=== PATIENT | female | born 1955 | race Caucasian/White ===

== ENCOUNTER 2017-02-13 09:40 | Inpatient (IN) ==
--- NOTE | 2017-02-01 11:46 | EKG Report ---
Stationary ECG Study [facility] Test Date: 02/01/2017 11:46:30 AM Pat Name: FERMÍN SEALS Department: Room: Gender: F [employer] Consultant: TAHIR STEVE [birth year] : 1955 Requested by: Connor Steve Order Number: [id number] Reading MD: ANGELITA CUADRA Intervals [place] Rate: 94 P: 65 IA: 132 QRS: 23 QRSD: 87 T: 24 QT: 352 QTc: 404 Interpretive Statements SINUS RHYTHM POSSIBLE RIGHT VENTRICULAR CONDUCTION DELAY Electronically Signed On 02-04-17 18:23:36 CDT by ANGELITA CUADRA [email or web address]
[2017-02-01 12:17] LABS: Basophils # 0.1 10*3/uL (0.0-0.2); Basophils % 0.8 % (0.0-0.8); Eosinophils % 0.6 % (0.00-10.9); Hematocrit 41.1 VOL% (35.7-47.0); Hemoglobin 13.9 GM/DL (12.0-16.0); Immature Granulocytes % 0.8 %; Immature Granulocytes Absolute 0.05 #; Lymphocytes # 1.7 10*3/uL (1.4-4.0); Mean Corpuscular HGB Conc 33.8 GM/DL (32-36); Mean Corpuscular Hemoglobin 29 PG (27-34); Mean Corpuscular Volume 85.6 FL (87-102); Mean Platelet Volume 8.9 FL (9.6-12.0); Monocytes # 0.5 10*3/uL (0.11-0.8); Monocytes % 7.5 % (1.7-12.7); Neutrophils # 4.2 10*3/uL (1.4-7.4); Neutrophils % 64.3 % (38.7-73.9); Platelet Count 286 T/CUMM (130-400); Red Cell Distribution Width 13.1 % (9.3-17.3); White Blood Count 6.5 T/CUMM (4-12)
--- NOTE | 2017-02-01 12:45 | Urology History & Physical ---
- Constitutional Constitutional: Absent: fatigue, increased appetite, night sweats, weakness - Cardiovascular Cardiovascular: Absent: chest pain at rest, chest pain with activity, dyspnea on exertion, radiating jaw, neck or arm pain, palpitations - Respiratory Respiratory: Absent: cough, hemoptysis, wheezing - Gastrointestinal Gastrointestinal: Absent: abdominal pain, hematemesis, melena, vomiting, jaundice - Genitourinary Genitourinary: Present: as per HPI, hematuria - Neurological Neurological: Absent: abnormal gait, abnormal speech - Psychiatric Psychiatric: Absent: anxiety, depression History of Present Illness Chief complaint: Bladder tumor History of present illness: Ms. Hidalgo is a 61 year old female This 61-year-old white female was referred by Dr. Ramos Winkler with gross hematuria and she has normal upper tracts on CT with a filling defect it was confirmed to be a bladder tumor. She is brought in at this time for TUR of the bladder and we discussed the possible complications of perforation the bladder and bleeding. Home Medications Medication Instructions Recorded Confirmed Type Aspirin [Ecotrin] 81 mg PO DAILY 01/19/17 02/01/17 History Loratadine [Claritin] 10 mg PO BEDTIME 01/19/17 02/01/17 History Omeprazole 20 mg PO DAILY 01/19/17 02/01/17 History Pravastatin [Pravachol] 20 mg PO BEDTIME 01/19/17 02/01/17 History Amlodipine Besylate 5 mg PO BEDTIME 02/01/17 02/01/17 History Allergies Allergy/AdvReac Type Severity Reaction Status Date / Time hydrochlorothiazide Allergy Severe HIVES Verified 01/25/17 11:13 latex Allergy Intermediate RASH/REDNES Verified 02/01/17 11:41 S Medical,Surgical,& Family Hx - Medical History Cardio: History of: Hypertension (medication) No history of: CHF, Pacemaker, PVD, Valvular Heart Disease Psychological: No history of: Psychiatric Problems Neurology: History of: Cerebrovascular Accident (mild stroke at age 34 yrs old) No history of: Seizures, TIA HEENT: History of: Eye Problem (glasses), Dental Problems (upper and parital) Endocrine: History of: Diabetes Mellitus (NIDDM) Respiratory: No history of: Respiratory Problems (No Flu Vac 2016/2016 Season) Renal: History of: Renal Problems (blood in urine) Genitourinary: History of: Bladder Problem (Bladder Tumor), Recurring Urinary Tract Infections Gastrointestinal: History of: GERD, GI Problems (does have a hernia) Musculoskeletal: No history of: Amputation Hematology: No history of: Blood Transfusion Reaction Reproductive: No history of: Reproductive Problems Other: No history of: Anesthesia Reactions - Surgical History Surgical History: noncontributory Cardiac Surgeries: Patient Denies: Cardiac Catheterization, Cardiac Surgery Thoracic Surgeries: Patient denies;: Organ Transplant HEENT Surgeries: Surgical HX of: Tonsilectomy & Adenoidectomy Abdominal Surgeries: Surgical HX of: Colonoscopy Patient denies: Splenectomy Reproductive Surgeries: Surgical HX of;: Cystoscopy, Genitourinary Surgery (02/13 Sched for TURB) - Family History Family History: noncontributory Family History: Reports;: Family Cancer (sister brother), Family Heart Disease ( brother father) - Social History Smoking Status: Former smoker Frequency of Alcohol Use: None Type of Drug Use: None Exam - Constitutional General appearance: no acute distress, over weight - Head Head exam: Present: normocephalic - Neck Neck exam: Present: normal inspection - Respiratory Respiratory exam: Present: clear to auscultation bilaterally - Cardiovascular Cardiovascular exam: Present: regular rate and rhythm - GI/Abdominal GI/Abdominal exam: Absent: distended, mass, tenderness - Back Exam Back exam: Present: normal inspection - Neurological Exam Neurological exam: Present: alert, oriented X3 - Psychiatric Psychiatric exam: Present: normal affect, normal mood - Skin Skin exam: Present: warm, dry Results - Labs CBC & BMP: 02/01/17 12:10
[2017-02-01 12:54] LABS: Calcium 9.6 MG/DL (8.5-10.1); Osmolality,Calculated 282.1 MOS/KG (273-304)
--- NOTE | 2017-02-13 07:53 | History and Physical Update ---
History and Physical Update - History and Physical H&P was reviewed, the patient examined and there: are no changes in the patients condition since last H&P was completed.
[~2017-02-13 09:40] MED LIST: LEVOFLOXACIN INJ 500 MG in PREMIX 1 EACH IV ONE; OXYBUTYNIN XL 15 MG TABLET PO ONE
[2017-02-13] MEDS ORDERED: LEVOFLOXACIN INJ 100 ML IV ONE (10:32)
[2017-02-13] MEDS ORDERED: OXYBUTYNIN XL 15 MG TABLET PO ONE (11:00)
[2017-02-13] MEDS ORDERED: DIAZEPAM 5 MG TABLET PO ONE (11:10)
[2017-02-13] MEDS ORDERED: FAMOTIDINE 20 MG TABLET PO ONE (11:11)
[2017-02-13] MEDS ORDERED: DIAZEPAM 5 MG TABLET ONE (11:28)
[2017-02-13] MEDS ORDERED: FAMOTIDINE 20 MG TABLET ONE (11:28)
[2017-02-13] MEDS ORDERED: LACTATED RINGERS 1,000 ML IV SCH (11:30)
[2017-02-13] MEDS ORDERED: MITOMYCIN INTRAVESIC STA (16:40)
[2017-02-13] MEDS ORDERED: SODIUM CHLORIDE 0.9% INTRAVESIC STA (16:40)
--- NOTE | 2017-02-13 16:51 | Operative Note ---
Date of procedure: 02/13/17 Pre-op diagnosis: cancer of the bladder Post-op diagnosis: same Procedure: Under an adequate preop medication including antibiotics the patient was taken to the cystoscopy room placed on the table in the supine position. General anesthesia was administered by anesthesia and the patient was turned into the lithotomy position prepped and draped in the usual manner. A timeout procedure was done. The 26 Armenian resectoscope sheath was introduced in the bladder and the bladder was again inspected. There was moderately large papillary tumor just to the lateral aspect of the left orifice and the left orifice was identified. The tumor was then resected down to the base and this portion of the tumor was removed and submitted as specimen #1 labeled bladder tumor. Deep biopsy was then taken off of the bladder base and this was submitted as specimen #2 labeled deep biopsy. The resected site was then thoroughly fulgurated. At the end of the procedure there was no bleeding and all the resected tissue been removed. A 22 silicone catheter was introduced in the bladder irrigated clear left on gravity drainage. Estimated blood loss was minimal. The patient tolerated procedure well and returned to the recovery room in good condition. Anesthesia: MAC Surgeon / Physician: Connor Steve Estimated blood loss: minimal Specimens: other (1. Bladder tumor #2 deep biopsy) Condition: stable Disposition: floor Results - Labs CBC & BMP: 02/01/17 12:10 02/01/17 12:10 Discharge Plan - Discharge Medications No Action Pravastatin [Pravachol] 20 mg PO BEDTIME Loratadine [Claritin] 10 mg PO BEDTIME Omeprazole 20 mg PO DAILY Amlodipine Besylate 5 mg PO BEDTIME Aspirin [Ecotrin] 81 mg PO DAILY - Follow Up or Referral - Forms/Instructions
[2017-02-13] MEDS ORDERED: MORPHINE 10 MG/1 ML VIAL IV PRN (16:54)
[2017-02-13] MEDS ORDERED: PROMETHAZINE 25 MG/1 ML VIAL IM PRN (16:54)
[2017-02-13] MEDS ORDERED: MITOMYCIN INTRAVESIC ONE ×2 (16:55→17:00)
[2017-02-13] MEDS ORDERED: SODIUM CHLORIDE 0.9% INTRAVESIC ONE (17:00)
--- NOTE | 2017-02-13 17:02 | Anesthesia Post-Op ---
Anesthesia Post OP - Post Ansesthetic Evaluation Patient seen in post op: Yes Resp: within normal limits CV: within normal limits Mental: within normal limits Temp: within normal limits [id number]-[id number]: within normal limits Nausea and Vomiting: within normal limits Pain: within normal limits
[2017-02-13] MEDS ORDERED: ONDANSETRON 4 MG/2 ML VIAL ONE (17:04)
[2017-02-13] MEDS ORDERED: SEVOFLURANE 1 UNIT/15 MINUTE INH ONE (17:04)
[2017-02-13] MEDS ORDERED: PROPOFOL 200 MG/20 ML VIAL IV ONE (17:04)
[2017-02-13] MEDS ORDERED: MIDAZOLAM 2 MG/2 ML VIAL ONE (17:04)
[2017-02-13] MEDS ORDERED: fentaNYL 100 MCG/2 ML VIAL ONE (17:04)
[2017-02-13] MEDS: SODIUM CHLORIDE 0.45% 1,000 ML IV SCH (18:45)
[2017-02-14] MEDS: SODIUM CHLORIDE 0.45% 1,000 ML IV SCH (02:31)
--- NOTE | 2017-02-14 07:41 | Urology Progress Note ---
Urology - PN: Subj Interval history: The patient did well last night and her urine is clear this morning. I will take out her IV and Gilmore and if she is doing well later today discharge her after lunch Exam - Constitutional Vitals: Period Temp Pulse Resp BP Sys/Morales Pulse Ox Last 24 Hr 97.0 F-98.4 F 67-93 14-20 82-150/51-88 94-100 Results - Labs CBC & BMP: 02/01/17 12:10 02/01/17 12:10
--- NOTE | 2017-02-14 07:44 | Discharge Summary ---
Hospital Course - Hospital Course Hospital Course: This 61-year-old white female was evaluated as an outpatient for intermittent gross hematuria and was found to have a papillary bladder tumor with normal upper tracts. She is brought in at this time for TUR of the bladder which was done under general anesthesia the day of admission. Her postoperative course was uneventful. She will be discharged on all of her home medication and follow the office in 2 weeks Discharge Plan - Discharge Data Disposition: Disch To Home/Self Care Condition at Discharge: Stable Discharge Diet: advance to your usual diet Activity: resume usual activities as tolerated Hygiene: no restrictions Weight Bearing at Discharge: full weight bearing Driving: no restrictions Contact your physician if you experience:: Bleeding - Discharge Medications No Action Pravastatin [Pravachol] 20 mg PO BEDTIME Loratadine [Claritin] 10 mg PO BEDTIME Omeprazole 20 mg PO DAILY Amlodipine Besylate 5 mg PO BEDTIME Aspirin [Ecotrin] 81 mg PO DAILY - Follow Up or Referral Follow Up: Connor Steve MD [Physician] - 2 Weeks - Forms/Instructions Exam - Constitutional Vitals: Period Temp Pulse Resp BP Sys/Morales Pulse Ox Last 24 Hr 97.0 F-98.4 F 67-93 14-20 82-150/51-88 94-100 DS: Provider Primary care physician: Ramos Gay MD Discharging clinician: Connor Steve MD
[2017-02-14 10:13] LABS: Amorphous Crystals,Urine Occasional /HPF (Few); Apearance,Urine CLOUDY (Clear); Bilirubin,Urine Negative (Negative); Blood, Urine Large mg/dL (Negative); Glucose,Urine (UA) Negative (Negative); Ketones,Urine Negative (Negative); Mucus,Urine Occasional /LPF (Occasional); Nitrite,Urine Negative (Negative); Protein,Urine 30 MG/DL; RBC,Urine 15 /HPF (0-4); Squamous Epithelial Cell,Urine Occasional /HPF (0-10); Urine Color Yellow (Yellow); Urine Specific Gravity 1.003 (1.001-1.035); Urine Urobilinogen < 2.0 EU/DL (0.2-1.0); WBC,Urine 9 /HPF (0-6)
[2017-02-14 11:03] VITALS: BP 111/63
--- NOTE | 2017-02-16 13:56 | Pathology Report from [facility] ---
[facility] ACCESSION # : [id number] PATIENT NAME : Fermín Hidalgo ORDERING DR : AELX MILLAN MD CLINICAL HX: Bladder tumor POST-OP DX: Same SPECIMEN INFO: #1 Bladder tumor #2 deep biopsy GROSS DESCRIPTION: The specimen is received in formalin in two parts labeled FERMÍN HIDALGO. #1 BLADDER is multiple friable fragments of andrade-vasquez soft tissue , collectively measuring 6.5 x 5.0 cm, submitted in entirely in 1A-1E.#2 DEEP BX consists of three white-vasquez soft tissue fragments, collectively measuring 1.5 up to 0.5 cm, submitted in #2. DIAGNOSIS FOR FERMÍN HIDALGO: #1 & #2 URINARY BLADDER, TURB: HISTOLOGIC TYPE: Papillary urothelial carcinoma, invasive. TUMOR SITE: Not specified. HISTOLOGIC GRADE: Low grade. MUSCULARIS PROPRIA PRESENCE: No muscularis propria present in specimens #1 or #2. MICROSCOPIC TUMOR EXTENSION: Tumor invades subepithelial connective tissue (lamina propria). LYMPHOVASCULAR INVASION: Not identified. ASSOCIATED EPITHELIAL LESIONS: None. ADDITIONAL FINDINGS: Moderate to marked thermal artifact. AJCC PATHOLOGIC STAGE I ([id number]). COLLECTED DATE: 02/14/2017 [facility] REPORT DATE: 02/15/2017 ELECTRONICALLY SIGNED BY: Fernando Humphrey M.D. 02/15/2017 - 10:22:29 ARMANDO
== END 2017-02-14 12:50 | disposition home or self-care (01) | DRG 670 ==
LOC: N.SDSINP 09:40 → N.OR 09:40 → N.SDSINP 09:43 → EDSTATUS 12:00 → N.3E 16:51 → EDSDCBED 17:58 → N.OR 02-14 12:50 → N.3E 02-19 15:16 → N.3W 02-19 15:20 → N.SDSINP 02-19 15:20
PROVIDERS: ADMIT Urology; ATTEND Urology

== ENCOUNTER 2019-01-04 18:44 | Inpatient (IN) ==
[2019-01-04] MEDS ORDERED: ONDANSETRON 4 MG/2 ML VIAL IV STA (19:30)
[2019-01-04] MEDS ORDERED: SODIUM CHLORIDE 0.9% 1,000 ML IV STA (19:30)
[2019-01-04 20:38] LABS: Basophils % 0.1 % (0.0-0.8); Eosinophils # 0.1 10*3/uL (0.0-0.87); Eosinophils % 0.7 % (0.00-10.9); Hemoglobin 10.1 GM/DL (12.0-16.0); Immature Granulocytes % 0.4 %; Immature Granulocytes Absolute 0.03 #; Lymphocytes # 0.9 10*3/uL (1.4-4.0); Lymphocytes % 12.3 % (21.3-54.2); Mean Corpuscular HGB Conc 31.6 GM/DL (32-36); Mean Corpuscular Volume 90.7 FL (87-102); Mean Platelet Volume 8.7 FL (9.6-12.0); Monocytes % 12.9 % (1.7-12.7); Neutrophils % 73.6 % (38.7-73.9); Platelet Count 353 T/CUMM (130-400); Red Blood Count 3.53 MC/CUMM (3.8-5.5); Red Cell Distribution Width 18.2 % (9.3-17.3); White Blood Count 7.5 T/CUMM (4-12)
[2019-01-04 21:07] LABS: Albumin 3.4 G/DL (3.4-5.0); Bilirubin,Total 0.6 MG/DL (0.2-1.0); Calcium 8.7 MG/DL (8.5-10.1); Osmolality,Calculated 275.7 MOS/KG (273-304); Total Protein 7.1 G/DL (6.4-8.3)
[2019-01-04] MEDS ORDERED: DEXTROSE 50% 25 GM/50 ML VIAL IV PRN (21:52)
[2019-01-04] MEDS ORDERED: GLUCAGON 1 MG VIAL IM PRN (21:52)
[2019-01-04] MEDS: ENOXAPARIN 40 MG/0.4 ML SYRINGE SUBCUT SCH (22:50)
[2019-01-04] MEDS: SODIUM CHLORIDE 0.9% 1,000 ML IV SCH (22:51)
[2019-01-04] MEDS: PIPERACILLIN/TAZOBACTAM 3,375 MG in SODIUM CHLORIDE 0.9% 100 ML IV SCH (23:10)
[2019-01-05] MEDS: HYDROmorphone 2 MG/1 ML VIAL IV PRN ×4 (01:30→21:05)
[2019-01-05] MEDS: INSULIN LISPRO 100 UNIT/ML SUBCUT SCH ×4 (01:44→18:12)
[2019-01-05 05:01] LABS: Basophils % 0.2 % (0.0-0.8); Eosinophils % 0.7 % (0.00-10.9); Hematocrit 26.2 VOL% (35.7-47.0); Hemoglobin 8.1 GM/DL (12.0-16.0); Immature Granulocytes % 0.5 %; Immature Granulocytes Absolute 0.03 #; Lymphocytes # 1.1 10*3/uL (1.4-4.0); Lymphocytes % 17.9 % (21.3-54.2); Mean Corpuscular HGB Conc 30.9 GM/DL (32-36); Mean Corpuscular Volume 92.3 FL (87-102); Mean Platelet Volume 8.9 FL (9.6-12.0); Monocytes % 15.4 % (1.7-12.7); Neutrophils % 65.3 % (38.7-73.9); Platelet Count 301 T/CUMM (130-400); Red Blood Count 2.84 MC/CUMM (3.8-5.5); Red Cell Distribution Width 18.1 % (9.3-17.3)
[2019-01-05] MEDS: PIPERACILLIN/TAZOBACTAM 3,375 MG in SODIUM CHLORIDE 0.9% 100 ML IV SCH ×3 (05:25→21:53)
[2019-01-05] MEDS ORDERED: POTASSIUM CHLORIDE 20 MEQ TABLET PO ONE (07:49)
[2019-01-05] MEDS: FAMOTIDINE 20 MG/2 ML VIAL IV SCH ×2 (08:34→20:59)
[2019-01-05] MEDS: SODIUM CHLORIDE 0.9% 1,000 ML IV SCH (09:38)
[2019-01-05] MEDS: DEXT 5% LACT RING KCL 20 MEQ 20 MEQ/1,000 ML BAG IV SCH ×2 (12:18→22:12)
[2019-01-05] MEDS: ONDANSETRON 4 MG/2 ML VIAL IV PRN (13:02)
[2019-01-05] MEDS ORDERED: SODIUM CHLORIDE 0.9% 100 ML IV ONE (20:38)
[2019-01-05] MEDS: ENOXAPARIN 40 MG/0.4 ML SYRINGE SUBCUT SCH (20:58)
[2019-01-06] MEDS: INSULIN LISPRO 100 UNIT/ML SUBCUT SCH ×4 (00:11→18:15)
[2019-01-06] MEDS: DEXT 5% LACT RING KCL 20 MEQ 20 MEQ/1,000 ML BAG IV SCH ×3 (03:45→20:34)
[2019-01-06 05:06] LABS: Basophils % 0.4 % (0.0-0.8); Eosinophils # 0.2 10*3/uL (0.0-0.87); Hematocrit 28.5 VOL% (35.7-47.0); Hemoglobin 8.7 GM/DL (12.0-16.0); Immature Granulocytes % 0.7 %; Immature Granulocytes Absolute 0.05 #; Lymphocytes # 1.2 10*3/uL (1.4-4.0); Lymphocytes % 15.6 % (21.3-54.2); Mean Corpuscular HGB Conc 30.5 GM/DL (32-36); Mean Corpuscular Volume 91.9 FL (87-102); Mean Platelet Volume 8.8 FL (9.6-12.0); Monocytes % 17.7 % (1.7-12.7); Neutrophils % 63.6 % (38.7-73.9); Platelet Count 369 T/CUMM (130-400); Red Cell Distribution Width 18.3 % (9.3-17.3); White Blood Count 7.7 T/CUMM (4-12)
[2019-01-06 05:34] LABS: Calcium 8.4 MG/DL (8.5-10.1); Osmolality,Calculated 282.1 MOS/KG (273-304); Risk Ratio 4.46; Thyroid Stimulating Hormone 1.15 uIU/ml (0.358-3.74); VLDL CHOLESTEROL 25.6 MG/DL
[2019-01-06 05:36] LABS: Eosinophils 2 % (0-10); Hypochromasia 1+; Lymphocytes 14 % (20-55); Ovalocytes Slight; Platelet Estimate Adequate; Segmented Neutrophils 71 % (50-85); Total Cells Counted 100
[2019-01-06] MEDS: PIPERACILLIN/TAZOBACTAM 3,375 MG in SODIUM CHLORIDE 0.9% 100 ML IV SCH ×3 (05:41→22:53)
[2019-01-06] MEDS: FAMOTIDINE 20 MG/2 ML VIAL IV SCH ×2 (09:58→20:29)
[2019-01-06] MEDS ORDERED: BENZOCAINE/MENTHOL LOZENGE 18/BOX PO PRN (11:07)
[2019-01-06] MEDS ORDERED: PHENOL 1.4% THROAT SPRAY 177 ML BOTTLE PO PRN (11:07)
[2019-01-06] MEDS: ONDANSETRON 4 MG/2 ML VIAL IV PRN (11:59)
[2019-01-06] MEDS: KETOROLAC 15 MG/1 ML VIAL IM PRN (12:21)
[2019-01-06] MEDS: HYDROmorphone 2 MG/1 ML VIAL IV PRN (20:26)
[2019-01-06] MEDS: ENOXAPARIN 40 MG/0.4 ML SYRINGE SUBCUT SCH ×2 (20:34→22:31)
[2019-01-07] MEDS: INSULIN LISPRO 100 UNIT/ML SUBCUT SCH ×4 (00:19→18:11)
[2019-01-07] MEDS: HYDROmorphone 2 MG/1 ML VIAL IV PRN ×3 (01:39→23:38)
[2019-01-07] MEDS: DEXT 5% LACT RING KCL 20 MEQ 20 MEQ/1,000 ML BAG IV SCH ×3 (05:18→20:36)
[2019-01-07] MEDS: PIPERACILLIN/TAZOBACTAM 3,375 MG in SODIUM CHLORIDE 0.9% 100 ML IV SCH ×3 (05:19→22:04)
[2019-01-07 05:28] LABS: Calcium 8.2 MG/DL (8.5-10.1); Osmolality,Calculated 285.8 MOS/KG (273-304)
[2019-01-07 05:31] LABS: Basophils % 0.4 % (0.0-0.8); Eosinophils # 0.1 10*3/uL (0.0-0.87); Eosinophils % 1.5 % (0.00-10.9); Hematocrit 27.1 VOL% (35.7-47.0); Hemoglobin 8.2 GM/DL (12.0-16.0); Immature Granulocytes % 0.6 %; Immature Granulocytes Absolute 0.05 #; Lymphocytes # 1.1 10*3/uL (1.4-4.0); Mean Corpuscular HGB Conc 30.3 GM/DL (32-36); Mean Corpuscular Volume 91.6 FL (87-102); Monocytes % 14.7 % (1.7-12.7); Neutrophils % 68.8 % (38.7-73.9); Platelet Count 485 T/CUMM (130-400); Red Blood Count 2.96 MC/CUMM (3.8-5.5); Red Cell Distribution Width 18.2 % (9.3-17.3)
[2019-01-07] MEDS: FAMOTIDINE 20 MG/2 ML VIAL IV SCH ×2 (08:40→20:41)
[2019-01-07] MEDS: KETOROLAC 15 MG/1 ML VIAL IM PRN ×2 (08:46→15:26)
[2019-01-07] MEDS: ENOXAPARIN 40 MG/0.4 ML SYRINGE SUBCUT SCH (20:41)
[2019-01-08] MEDS: INSULIN LISPRO 100 UNIT/ML SUBCUT SCH ×4 (01:03→18:37)
[2019-01-08] MEDS: HYDROmorphone 2 MG/1 ML VIAL IV PRN ×2 (05:08→18:37)
[2019-01-08] MEDS: PIPERACILLIN/TAZOBACTAM 3,375 MG in SODIUM CHLORIDE 0.9% 100 ML IV SCH (05:12)
[2019-01-08 05:59] LABS: Basophils % 0.5 % (0.0-0.8); Eosinophils # 0.2 10*3/uL (0.0-0.87); Eosinophils % 2.9 % (0.00-10.9); Hematocrit 28.8 VOL% (35.7-47.0); Hemoglobin 8.7 GM/DL (12.0-16.0); Immature Granulocytes % 0.5 %; Immature Granulocytes Absolute 0.04 #; Lymphocytes # 0.9 10*3/uL (1.4-4.0); Lymphocytes % 11.9 % (21.3-54.2); Mean Corpuscular HGB Conc 30.2 GM/DL (32-36); Mean Corpuscular Volume 92.3 FL (87-102); Mean Platelet Volume 8.9 FL (9.6-12.0); Monocytes % 12.7 % (1.7-12.7); Neutrophils % 71.5 % (38.7-73.9); Platelet Count 637 T/CUMM (130-400); Red Blood Count 3.12 MC/CUMM (3.8-5.5); White Blood Count 7.7 T/CUMM (4-12)
[2019-01-08 06:14] LABS: Osmolality,Calculated 282.1 MOS/KG (273-304)
[2019-01-08] MEDS: DEXT 5% LACT RING KCL 20 MEQ 20 MEQ/1,000 ML BAG IV SCH ×2 (06:18→15:53)
[2019-01-08] MEDS ORDERED: POTASSIUM CHLORIDE 20 MEQ TABLET PO PRN (07:22)
[2019-01-08] MEDS: FAMOTIDINE 20 MG/2 ML VIAL IV SCH ×2 (08:33→20:44)
[2019-01-08] MEDS: POTASSIUM CHLORIDE RIDER 10 MEQ in PREMIX 1 EACH IV PRN ×2 (08:33→15:54)
[2019-01-08] MEDS ORDERED: PROPOFOL 200 MG/20 ML VIAL IV ONE (10:00)
[2019-01-08] MEDS ORDERED: LIDOCAINE 2% 5 ML VIAL ONE (10:00)
[2019-01-08] MEDS: LACTATED RINGERS 1,000 ML IV SCH (10:17)
[2019-01-08] MEDS: ONDANSETRON 4 MG/2 ML VIAL IV PRN (13:40)
[2019-01-08] MEDS ORDERED: PROMETHAZINE INJ 25 MG in SODIUM CHLORIDE 0.9% 50 ML IV PRN (16:06)
[2019-01-08] MEDS: ENOXAPARIN 40 MG/0.4 ML SYRINGE SUBCUT SCH (20:44)
[2019-01-09] MEDS: INSULIN LISPRO 100 UNIT/ML SUBCUT SCH ×4 (01:36→17:22)
[2019-01-09] MEDS: DEXT 5% LACT RING KCL 20 MEQ 20 MEQ/1,000 ML BAG IV SCH ×2 (01:37→08:52)
[2019-01-09] MEDS: HYDROmorphone 2 MG/1 ML VIAL IV PRN ×4 (01:38→21:28)
[2019-01-09 04:50] LABS: Basophils % 0.2 % (0.0-0.8); Eosinophils # 0.1 10*3/uL (0.0-0.87); Eosinophils % 1.2 % (0.00-10.9); Hematocrit 30.8 VOL% (35.7-47.0); Hemoglobin 9.1 GM/DL (12.0-16.0); Immature Granulocytes % 0.6 %; Immature Granulocytes Absolute 0.05 #; Lymphocytes # 1.2 10*3/uL (1.4-4.0); Lymphocytes % 14.5 % (21.3-54.2); Mean Corpuscular HGB Conc 29.5 GM/DL (32-36); Mean Corpuscular Volume 92.5 FL (87-102); Mean Platelet Volume 8.6 FL (9.6-12.0); Monocytes % 13.1 % (1.7-12.7); Neutrophils % 70.4 % (38.7-73.9); Platelet Count 743 T/CUMM (130-400); Red Blood Count 3.33 MC/CUMM (3.8-5.5); Red Cell Distribution Width 18.1 % (9.3-17.3); White Blood Count 8.3 T/CUMM (4-12)
[2019-01-09 05:18] LABS: Calcium 8.4 MG/DL (8.5-10.1)
[2019-01-09] MEDS: FAMOTIDINE 20 MG/2 ML VIAL IV SCH ×2 (08:52→21:24)
[2019-01-09] MEDS: FAT EMULSION 20% 250 ML IV SCH (14:52)
[2019-01-09] MEDS ORDERED: TRACE ELEMENTS (5) 1 ML, MULTIVITAMIN INJ 10 ML in AMINO ACIDS/DEXT/LYTES 5-15% 2,000 ML IV SCH (17:00)
[2019-01-09] MEDS ORDERED: DEXTROSE 10% 1,000 ML IV PRN (17:00)
[2019-01-09] MEDS: DEXTROSE 5% NACL 0.45% 1,000 ML IV SCH (20:40)
[2019-01-09] MEDS: ENOXAPARIN 40 MG/0.4 ML SYRINGE SUBCUT SCH (21:21)
[2019-01-09] MEDS: LACTATED RINGERS 1,000 ML IV SCH (21:29)
[2019-01-10] MEDS: INSULIN LISPRO 100 UNIT/ML SUBCUT SCH ×5 (03:00→23:47)
[2019-01-10] MEDS: HYDROmorphone 2 MG/1 ML VIAL IV PRN ×4 (03:52→23:55)
[2019-01-10 04:41] LABS: Basophils % 0.4 % (0.0-0.8); Eosinophils # 0.3 10*3/uL (0.0-0.87); Eosinophils % 3.3 % (0.00-10.9); Hematocrit 29.1 VOL% (35.7-47.0); Hemoglobin 8.7 GM/DL (12.0-16.0); Immature Granulocytes % 0.5 %; Immature Granulocytes Absolute 0.04 #; Lymphocytes % 12.5 % (21.3-54.2); Mean Corpuscular HGB Conc 29.9 GM/DL (32-36); Mean Corpuscular Volume 90.7 FL (87-102); Neutrophils % 70.3 % (38.7-73.9); Platelet Count 807 T/CUMM (130-400); Red Blood Count 3.21 MC/CUMM (3.8-5.5); Red Cell Distribution Width 18.1 % (9.3-17.3); White Blood Count 8.1 T/CUMM (4-12)
[2019-01-10 04:47] LABS: Calcium 8.4 MG/DL (8.5-10.1); Osmolality,Calculated 283.1 MOS/KG (273-304)
[2019-01-10 04:53] LABS: Prealbumin 9.6 MG/DL (20-40)
[2019-01-10] MEDS: DEXTROSE 5% NACL 0.45% 1,000 ML IV SCH (05:15)
[2019-01-10] MEDS: FAMOTIDINE 20 MG/2 ML VIAL IV SCH ×2 (08:39→20:42)
[2019-01-10] MEDS ORDERED: cefOXitin 2,000 MG in SYRINGE 1 EACH IV ONE (09:54)
[2019-01-10 14:23] LABS: Apearance,Urine CLEAR (Clear); Bilirubin,Urine Negative (Negative); Blood, Urine Negative (Negative); Glucose,Urine (UA) Negative (Negative); Ketones,Urine 5 mg/dL (Negative); Mucus,Urine Few /LPF (Occasional); Nitrite,Urine Negative (Negative); Protein,Urine Negative; RBC,Urine 4 /HPF (0-4); Squamous Epithelial Cell,Urine Occasional /HPF (0-10); Urine Color Yellow (Yellow); Urine Specific Gravity 1.011 (1.001-1.035); Urine Urobilinogen < 2.0 EU/DL (0.2-1.0); WBC,Urine 3 /HPF (0-6)
[2019-01-10] MEDS ORDERED: DEXAMETHASONE 4 MG/1 ML VIAL ONE (14:34)
[2019-01-10] MEDS ORDERED: KETOROLAC 30 MG/1 ML VIAL ONE (14:34)
[2019-01-10] MEDS ORDERED: fentaNYL 100 MCG/2 ML VIAL ONE (14:34)
[2019-01-10] MEDS ORDERED: GLYCOPYRROLATE 0.4 MG/2 ML VIAL ONE (14:34)
[2019-01-10] MEDS ORDERED: MIDAZOLAM 2 MG/2 ML VIAL ONE (14:34)
[2019-01-10] MEDS ORDERED: PROPOFOL 200 MG/20 ML VIAL IV ONE (14:34)
[2019-01-10] MEDS ORDERED: SEVOFLURANE 1 UNIT/15 MINUTE INH ONE (14:34)
[2019-01-10] MEDS ORDERED: ONDANSETRON 4 MG/2 ML VIAL ONE (14:34)
[2019-01-10] MEDS ORDERED: LACTATED RINGERS 1,000 ML IV ONE (14:35)
[2019-01-10] MEDS ORDERED: ACETAMINOPHEN 1,000 MG/100 ML VIAL IV ONE (14:35)
[2019-01-10] MEDS ORDERED: ROCURONIUM 100 MG/10 ML VIAL IV ONE (14:35)
[2019-01-10] MEDS ORDERED: NEOSTIGMINE 10 MG/10 ML VIAL ONE (14:35)
[2019-01-10] MEDS ORDERED: PHENYLEPHRINE 1 MG/10 ML SYRINGE IV ONE (14:35)
[2019-01-10] MEDS ORDERED: SUCCINYLCHOLINE 200 MG/10 ML VIAL ONE (14:35)
[2019-01-10] MEDS: FAT EMULSION 20% 250 ML IV SCH (17:24)
[2019-01-10] MEDS: TRACE ELEMENTS (5) 1 ML, MULTIVITAMIN INJ 10 ML in AMINO ACIDS/DEXT/LYTES 5-15% 2,000 ML IV SCH (17:24)
[2019-01-10] MEDS ORDERED: HYDROmorphone 2 MG/1 ML VIAL IV PRN (18:45)
[2019-01-11] MEDS: DEXTROSE 5% NACL 0.45% 1,000 ML IV SCH (01:13)
[2019-01-11] MEDS: HYDROmorphone 2 MG/1 ML VIAL IV PRN ×5 (04:01→20:57)
[2019-01-11] MEDS: INSULIN LISPRO 100 UNIT/ML SUBCUT SCH ×3 (05:36→17:34)
[2019-01-11 06:49] LABS: Basophils % 0.1 % (0.0-0.8); Hematocrit 29.5 VOL% (35.7-47.0); Hemoglobin 8.6 GM/DL (12.0-16.0); Immature Granulocytes % 0.7 %; Immature Granulocytes Absolute 0.07 #; Lymphocytes # 0.7 10*3/uL (1.4-4.0); Lymphocytes % 7.2 % (21.3-54.2); Mean Corpuscular HGB Conc 29.2 GM/DL (32-36); Mean Corpuscular Volume 91.3 FL (87-102); Monocytes % 12.5 % (1.7-12.7); Neutrophils % 79.5 % (38.7-73.9); Platelet Count 807 T/CUMM (130-400); Red Blood Count 3.23 MC/CUMM (3.8-5.5); White Blood Count 10.3 T/CUMM (4-12)
[2019-01-11 07:07] LABS: Bilirubin,Total 0.5 MG/DL (0.2-1.0); Calcium 7.9 MG/DL (8.5-10.1); Osmolality,Calculated 284.5 MOS/KG (273-304); Total Protein 5.4 G/DL (6.4-8.3)
[2019-01-11 07:18] LABS: Calcium 7.8 MG/DL (8.5-10.1); Osmolality,Calculated 282.7 MOS/KG (273-304)
[2019-01-11] MEDS: FAMOTIDINE 20 MG/2 ML VIAL IV SCH ×2 (08:13→20:56)
[2019-01-11] MEDS: LACTATED RINGERS 1,000 ML IV SCH (09:52)
[2019-01-11] MEDS: TRACE ELEMENTS (5) 1 ML, MULTIVITAMIN INJ 10 ML, INSULIN REGULAR 30 UNIT in AMINO ACIDS... IV SCH (16:28)
[2019-01-11] MEDS: FAT EMULSION 20% 250 ML IV SCH (16:28)
[2019-01-11] MEDS: TRACE ELEMENTS (5) 1 ML, MULTIVITAMIN INJ 10 ML in AMINO ACIDS/DEXT/LYTES 5-15% 2,000 ML IV SCH (16:36)
[2019-01-12] MEDS: INSULIN LISPRO 100 UNIT/ML SUBCUT SCH ×4 (01:03→19:02)
[2019-01-12] MEDS: HYDROmorphone 2 MG/1 ML VIAL IV PRN ×5 (04:00→21:18)
[2019-01-12] MEDS: LACTATED RINGERS 1,000 ML IV SCH (05:18)
[2019-01-12] MEDS: FAMOTIDINE 20 MG/2 ML VIAL IV SCH ×2 (08:23→21:17)
[2019-01-12] MEDS: FAT EMULSION 20% 250 ML IV SCH (16:34)
[2019-01-12] MEDS: TRACE ELEMENTS (5) 1 ML, MULTIVITAMIN INJ 10 ML, INSULIN REGULAR 30 UNIT in AMINO ACIDS... IV SCH (16:35)
[2019-01-12] MEDS ORDERED: KETOROLAC 30 MG/1 ML VIAL IV ONE (23:51)
[2019-01-12] MEDS ORDERED: KETOROLAC 30 MG/1 ML VIAL IM ONE (23:51)
[2019-01-13] MEDS: LACTATED RINGERS 1,000 ML IV SCH ×2 (00:58→22:12)
[2019-01-13] MEDS: HYDROmorphone 2 MG/1 ML VIAL IV PRN ×5 (00:59→20:01)
[2019-01-13 03:58] LABS: Basophils # 0.1 10*3/uL (0.0-0.2); Basophils % 0.6 % (0.0-0.8); Eosinophils # 0.4 10*3/uL (0.0-0.87); Eosinophils % 3.1 % (0.00-10.9); Hematocrit 27.5 VOL% (35.7-47.0); Hemoglobin 8.3 GM/DL (12.0-16.0); Immature Granulocytes % 1.4 %; Immature Granulocytes Absolute 0.18 #; Lymphocytes # 1.4 10*3/uL (1.4-4.0); Lymphocytes % 10.9 % (21.3-54.2); Mean Corpuscular HGB Conc 30.2 GM/DL (32-36); Mean Corpuscular Volume 88.1 FL (87-102); Monocytes % 15.7 % (1.7-12.7); Neutrophils % 68.3 % (38.7-73.9); Platelet Count 530 T/CUMM (130-400); Red Blood Count 3.12 MC/CUMM (3.8-5.5); Red Cell Distribution Width 18.5 % (9.3-17.3); White Blood Count 12.6 T/CUMM (4-12)
[2019-01-13 04:14] LABS: Calcium 7.7 MG/DL (8.5-10.1); Osmolality,Calculated 276.8 MOS/KG (273-304)
[2019-01-13 04:19] LABS: Prealbumin 8.1 MG/DL (20-40)
[2019-01-13] MEDS: INSULIN LISPRO 100 UNIT/ML SUBCUT SCH ×4 (04:34→18:18)
[2019-01-13 04:50] LABS: Eosinophils 4 % (0-10); Hypochromasia 1+; Lymphocytes 6 % (20-55); Platelet Estimate Increased; Segmented Neutrophils 77 % (50-85); Total Cells Counted 100
[2019-01-13] MEDS: FAMOTIDINE 20 MG/2 ML VIAL IV SCH ×2 (11:11→20:24)
[2019-01-13] MEDS ORDERED: ALBUTEROL/IPRATROPIUM 3 ML NEB RESP TX ONE (11:21)
[2019-01-13] MEDS: ALBUTEROL/IPRATROPIUM 3 ML NEB RESP TX SCH ×3 (15:22→23:53)
[2019-01-13] MEDS: TRACE ELEMENTS (5) 1 ML, MULTIVITAMIN INJ 10 ML, INSULIN REGULAR 30 UNIT in AMINO ACIDS... IV SCH (16:50)
[2019-01-13] MEDS: FAT EMULSION 20% 250 ML IV SCH (16:52)
[2019-01-14] MEDS: HYDROmorphone 2 MG/1 ML VIAL IV PRN ×4 (00:02→20:26)
[2019-01-14] MEDS: INSULIN LISPRO 100 UNIT/ML SUBCUT SCH ×4 (01:05→17:43)
[2019-01-14 03:41] LABS: Apearance,Urine Slightly Hazy (Clear); Bacteria,Urine Many /HPF (Few); Bilirubin,Urine Negative (Negative); Blood, Urine Moderate mg/dL (Negative); Glucose,Urine (UA) Negative (Negative); Hyaline Casts,Urine 1 /LPF (0-3); Ketones,Urine Negative (Negative); Mucus,Urine Occasional /LPF (Occasional); Nitrite,Urine Positive (Negative); Protein,Urine Negative; RBC,Urine 27 /HPF (0-4); Squamous Epithelial Cell,Urine Occasional /HPF (0-10); Urine Color Yellow (Yellow); Urine Specific Gravity 1.011 (1.001-1.035); WBC,Urine 290 /HPF (0-6)
[2019-01-14] MEDS: ALBUTEROL/IPRATROPIUM 3 ML NEB RESP TX SCH ×5 (03:43→18:40)
[2019-01-14 05:06] LABS: Basophils # 0.1 10*3/uL (0.0-0.2); Basophils % 0.4 % (0.0-0.8); Eosinophils # 0.2 10*3/uL (0.0-0.87); Eosinophils % 1.2 % (0.00-10.9); Hematocrit 27.4 VOL% (35.7-47.0); Hemoglobin 8.3 GM/DL (12.0-16.0); Immature Granulocytes % 1.4 %; Immature Granulocytes Absolute 0.21 #; Lymphocytes # 1.7 10*3/uL (1.4-4.0); Lymphocytes % 11.4 % (21.3-54.2); Mean Corpuscular HGB Conc 30.3 GM/DL (32-36); Mean Corpuscular Volume 88.4 FL (87-102); Mean Platelet Volume 9.6 FL (9.6-12.0); Monocytes % 16.3 % (1.7-12.7); Neutrophils % 69.3 % (38.7-73.9); Platelet Count 547 T/CUMM (130-400); Red Cell Distribution Width 18.8 % (9.3-17.3); White Blood Count 14.5 T/CUMM (4-12)
[2019-01-14 05:38] LABS: Eosinophils 4 % (0-10); Lymphocytes 9 % (20-55); Segmented Neutrophils 73 % (50-85); Total Cells Counted 100
[2019-01-14 05:40] LABS: Anisocytosis 1+; Calcium 7.7 MG/DL (8.5-10.1); Hypochromasia Slight; Microcytosis 1+; Osmolality,Calculated 274.1 MOS/KG (273-304); Ovalocytes 1+; Platelet Estimate Increased; Polychromasia Few
[2019-01-14] MEDS: ONDANSETRON 4 MG/2 ML VIAL IV PRN ×2 (06:06→20:31)
[2019-01-14] MEDS: FAMOTIDINE 20 MG/2 ML VIAL IV SCH ×2 (08:19→20:33)
[2019-01-14] MEDS: cefTRIAXone 1,000 MG in SYRINGE 1 EACH IV SCH (11:46)
[2019-01-14] MEDS: FAT EMULSION 20% 250 ML IV SCH (15:13)
[2019-01-14] MEDS: LACTATED RINGERS 1,000 ML IV SCH (16:33)
[2019-01-14] MEDS: TRACE ELEMENTS (5) 1 ML, MULTIVITAMIN INJ 10 ML, INSULIN REGULAR 30 UNIT in AMINO ACIDS... IV SCH (16:34)
[2019-01-15] MEDS: ALBUTEROL/IPRATROPIUM 3 ML NEB RESP TX SCH ×6 (00:03→19:56)
[2019-01-15] MEDS: INSULIN LISPRO 100 UNIT/ML SUBCUT SCH ×4 (00:05→18:58)
[2019-01-15] MEDS: HYDROmorphone 2 MG/1 ML VIAL IV PRN ×4 (05:47→19:45)
[2019-01-15 05:57] LABS: Basophils # 0.1 10*3/uL (0.0-0.2); Basophils % 0.6 % (0.0-0.8); Eosinophils # 0.2 10*3/uL (0.0-0.87); Hematocrit 29.1 VOL% (35.7-47.0); Hemoglobin 8.7 GM/DL (12.0-16.0); Immature Granulocytes % 2.1 %; Lymphocytes # 1.4 10*3/uL (1.4-4.0); Lymphocytes % 9.9 % (21.3-54.2); Mean Corpuscular HGB Conc 29.9 GM/DL (32-36); Mean Corpuscular Volume 88.2 FL (87-102); Mean Platelet Volume 9.8 FL (9.6-12.0); Neutrophils % 68.4 % (38.7-73.9); Platelet Count 536 T/CUMM (130-400); Red Cell Distribution Width 18.8 % (9.3-17.3); White Blood Count 14.4 T/CUMM (4-12)
[2019-01-15 06:17] LABS: Calcium 7.9 MG/DL (8.5-10.1); Osmolality,Calculated 277.7 MOS/KG (273-304)
[2019-01-15 06:18] LABS: Eosinophils 1 % (0-10); Lymphocytes 5 % (20-55); Segmented Neutrophils 79 % (50-85); Total Cells Counted 100
[2019-01-15 06:19] LABS: Hypochromasia 1+; Microcytosis 1+; Ovalocytes Slight; Platelet Estimate Adequate
[2019-01-15] MEDS: FAMOTIDINE 20 MG/2 ML VIAL IV SCH ×3 (08:23→23:09)
[2019-01-15] MEDS: ONDANSETRON 4 MG/2 ML VIAL IV PRN (10:29)
[2019-01-15] MEDS: cefTRIAXone 1,000 MG in SYRINGE 1 EACH IV SCH (10:34)
[2019-01-15] MEDS: ALUMINUM/MAGNES/SIMETH MAX STR 30 ML UDCUP PO PRN (10:37)
[2019-01-15] MEDS: LACTATED RINGERS 1,000 ML IV SCH (12:59)
[2019-01-15] MEDS: FAT EMULSION 20% 250 ML IV SCH (15:38)
[2019-01-15] MEDS: TRACE ELEMENTS (5) 1 ML, MULTIVITAMIN INJ 10 ML, INSULIN REGULAR 30 UNIT in AMINO ACIDS... IV SCH (23:17)
[2019-01-16] MEDS: ALBUTEROL/IPRATROPIUM 3 ML NEB RESP TX SCH ×7 (00:04→23:08)
[2019-01-16] MEDS: INSULIN LISPRO 100 UNIT/ML SUBCUT SCH ×4 (01:33→18:17)
[2019-01-16] MEDS: ONDANSETRON 4 MG/2 ML VIAL IV PRN ×2 (02:42→16:41)
[2019-01-16] MEDS: HYDROmorphone 2 MG/1 ML VIAL IV PRN ×4 (02:45→22:41)
[2019-01-16 04:50] LABS: Basophils # 0.1 10*3/uL (0.0-0.2); Basophils % 0.5 % (0.0-0.8); Eosinophils # 0.1 10*3/uL (0.0-0.87); Eosinophils % 0.5 % (0.00-10.9); Hematocrit 27.8 VOL% (35.7-47.0); Hemoglobin 8.5 GM/DL (12.0-16.0); Immature Granulocytes % 1.3 %; Immature Granulocytes Absolute 0.19 #; Lymphocytes % 6.9 % (21.3-54.2); Mean Corpuscular HGB Conc 30.6 GM/DL (32-36); Mean Corpuscular Volume 87.1 FL (87-102); Mean Platelet Volume 9.9 FL (9.6-12.0); Monocytes % 16.8 % (1.7-12.7); Platelet Count 504 T/CUMM (130-400); Red Blood Count 3.19 MC/CUMM (3.8-5.5); Red Cell Distribution Width 18.7 % (9.3-17.3); White Blood Count 15.1 T/CUMM (4-12)
[2019-01-16 05:16] LABS: Band Neutrophils 1 % (0-10); Lymphocytes 8 % (20-55); Metamyelocytes 1 %; Myelocytes 1 %; Segmented Neutrophils 76 % (50-85); Total Cells Counted 100
[2019-01-16 05:17] LABS: Hypochromasia Slight; Platelet Estimate Increased
[2019-01-16 05:19] LABS: Reactive Lymphocytes Few
[2019-01-16 05:27] LABS: Calcium 8.1 MG/DL (8.5-10.1); Osmolality,Calculated 280.7 MOS/KG (273-304)
[2019-01-16] MEDS: FAMOTIDINE 20 MG/2 ML VIAL IV SCH ×4 (06:31→21:10)
[2019-01-16] MEDS: cefTRIAXone 1,000 MG in SYRINGE 1 EACH IV SCH (09:55)
[2019-01-16] MEDS: LACTATED RINGERS 1,000 ML IV SCH (09:57)
[2019-01-16] MEDS: POLYETHYLENE GLYCOL POWDER 17 GM PACK PO SCH (13:31)
[2019-01-16] MEDS: FAT EMULSION 20% 250 ML IV SCH (16:03)
[2019-01-16] MEDS: TRACE ELEMENTS (5) 1 ML, MULTIVITAMIN INJ 10 ML, INSULIN REGULAR 30 UNIT in AMINO ACIDS... IV SCH (16:09)
[2019-01-16] MEDS: ERTAPENEM 1,000 MG in SODIUM CHLORIDE 0.9% 100 ML IV SCH (18:31)
[2019-01-17] MEDS: INSULIN LISPRO 100 UNIT/ML SUBCUT SCH ×4 (01:05→18:07)
[2019-01-17] MEDS: ALBUTEROL/IPRATROPIUM 3 ML NEB RESP TX SCH ×6 (03:15→23:15)
[2019-01-17] MEDS: LACTATED RINGERS 1,000 ML IV SCH ×2 (03:49→23:02)
[2019-01-17 05:57] LABS: Basophils # 0.1 10*3/uL (0.0-0.2); Basophils % 0.5 % (0.0-0.8); Eosinophils # 0.1 10*3/uL (0.0-0.87); Eosinophils % 0.9 % (0.00-10.9); Hematocrit 27.1 VOL% (35.7-47.0); Hemoglobin 8.1 GM/DL (12.0-16.0); Immature Granulocytes % 1.7 %; Immature Granulocytes Absolute 0.23 #; Lymphocytes # 1.4 10*3/uL (1.4-4.0); Mean Corpuscular HGB Conc 29.9 GM/DL (32-36); Mean Corpuscular Volume 87.4 FL (87-102); Mean Platelet Volume 9.9 FL (9.6-12.0); Monocytes % 17.2 % (1.7-12.7); Neutrophils % 69.7 % (38.7-73.9); Platelet Count 472 T/CUMM (130-400); White Blood Count 13.8 T/CUMM (4-12)
[2019-01-17] MEDS: HYDROmorphone 2 MG/1 ML VIAL IV PRN ×4 (06:09→22:06)
[2019-01-17 06:23] LABS: Anisocytosis 2+; Band Neutrophils 3 % (0-10); Eosinophils 1 % (0-10); Lymphocytes 10 % (20-55); Platelet Estimate Normal; Poikilocytosis 1+; Segmented Neutrophils 69 % (50-85); Total Cells Counted 100
[2019-01-17 06:24] LABS: Polychromasia Slight; Target Cells Few; Tear Drop Cells Few
[2019-01-17] MEDS: POLYETHYLENE GLYCOL POWDER 17 GM PACK PO SCH (08:59)
[2019-01-17] MEDS: FAMOTIDINE 20 MG/2 ML VIAL IV SCH ×2 (09:01→20:05)
[2019-01-17] MEDS: FAT EMULSION 20% 250 ML IV SCH (14:19)
[2019-01-17] MEDS: ALUMINUM/MAGNES/SIMETH MAX STR 30 ML UDCUP PO PRN (14:25)
[2019-01-17] MEDS: TRACE ELEMENTS (5) 1 ML, MULTIVITAMIN INJ 10 ML, INSULIN REGULAR 30 UNIT in AMINO ACIDS... IV SCH (15:22)
[2019-01-17] MEDS: ERTAPENEM 1,000 MG in SODIUM CHLORIDE 0.9% 100 ML IV SCH (17:48)
[2019-01-18] MEDS: INSULIN LISPRO 100 UNIT/ML SUBCUT SCH ×4 (00:10→17:27)
[2019-01-18] MEDS: ALBUTEROL/IPRATROPIUM 3 ML NEB RESP TX SCH ×6 (02:55→23:35)
[2019-01-18] MEDS: HYDROmorphone 2 MG/1 ML VIAL IV PRN ×3 (05:16→18:24)
[2019-01-18] MEDS: POLYETHYLENE GLYCOL POWDER 17 GM PACK PO SCH (09:32)
[2019-01-18] MEDS: FAMOTIDINE 20 MG/2 ML VIAL IV SCH ×2 (09:32→20:17)
[2019-01-18] MEDS: NITROFURANTOIN MACRO/MONO 100 MG CAPSULE PO SCH ×2 (11:33→20:19)
[2019-01-19] MEDS: INSULIN LISPRO 100 UNIT/ML SUBCUT SCH ×4 (00:15→18:52)
[2019-01-19] MEDS: HYDROmorphone 2 MG/1 ML VIAL IV PRN ×5 (00:25→22:36)
[2019-01-19] MEDS: ALBUTEROL/IPRATROPIUM 3 ML NEB RESP TX SCH ×5 (02:40→19:14)
[2019-01-19] MEDS: POLYETHYLENE GLYCOL POWDER 17 GM PACK PO SCH (09:37)
[2019-01-19] MEDS: NITROFURANTOIN MACRO/MONO 100 MG CAPSULE PO SCH ×2 (09:37→20:05)
[2019-01-19] MEDS: FAMOTIDINE 20 MG/2 ML VIAL IV SCH ×2 (09:39→20:06)
[2019-01-19] MEDS ORDERED: BISACODYL 10 MG SUPP RECTAL ONE (10:01)
[2019-01-19] MEDS: LACTATED RINGERS 1,000 ML IV SCH (13:20)
[2019-01-19] MEDS: ALUMINUM/MAGNES/SIMETH MAX STR 30 ML UDCUP PO PRN (15:50)
[2019-01-19] MEDS: ONDANSETRON 4 MG/2 ML VIAL IV PRN (16:58)
[2019-01-20] MEDS: ALBUTEROL/IPRATROPIUM 3 ML NEB RESP TX SCH ×8 (00:50→23:46)
[2019-01-20] MEDS: INSULIN LISPRO 100 UNIT/ML SUBCUT SCH ×4 (01:31→17:53)
[2019-01-20] MEDS ORDERED: HEPARIN LOCK FLUSH 500 UNIT/5 ML SYRINGE IV ONE (04:23)
[2019-01-20 05:21] LABS: Osmolality,Calculated 271.8 MOS/KG (273-304)
[2019-01-20] MEDS: HYDROmorphone 2 MG/1 ML VIAL IV PRN ×4 (05:22→20:17)
[2019-01-20] MEDS: FAMOTIDINE 20 MG/2 ML VIAL IV SCH ×2 (08:17→20:13)
[2019-01-20] MEDS: NITROFURANTOIN MACRO/MONO 100 MG CAPSULE PO SCH ×2 (08:17→20:12)
[2019-01-20] MEDS: POLYETHYLENE GLYCOL POWDER 17 GM PACK PO SCH (08:18)
[2019-01-20] MEDS: LACTATED RINGERS 1,000 ML IV SCH (09:20)
[2019-01-20] MEDS: ONDANSETRON 4 MG/2 ML VIAL IV PRN (17:33)
[2019-01-21] MEDS: INSULIN LISPRO 100 UNIT/ML SUBCUT SCH ×3 (01:35→12:43)
[2019-01-21] MEDS: HYDROmorphone 2 MG/1 ML VIAL IV PRN ×3 (02:27→13:14)
[2019-01-21] MEDS: ALBUTEROL/IPRATROPIUM 3 ML NEB RESP TX SCH ×4 (03:35→10:53)
[2019-01-21] MEDS: LACTATED RINGERS 1,000 ML IV SCH (06:38)
[2019-01-21] MEDS: ONDANSETRON 4 MG/2 ML VIAL IV PRN ×2 (08:49→13:14)
[2019-01-21] MEDS: FAMOTIDINE 20 MG/2 ML VIAL IV SCH (08:51)
[2019-01-21] MEDS: NITROFURANTOIN MACRO/MONO 100 MG CAPSULE PO SCH (08:51)
[2019-01-21] MEDS: POLYETHYLENE GLYCOL POWDER 17 GM PACK PO SCH (08:51)
[2019-01-21 11:27] VITALS: BP 144/70
[2019-01-21] MEDS ORDERED: HEPARIN LOCK FLUSH 500 UNIT/5 ML SYRINGE IV ONE ×2 (12:12→13:53)
== END 2019-01-21 13:58 | disposition home or self-care (01) | DRG 421 ==
LOC: EDUNIT# → EDBD → N.4E 18:44 → N.ED 18:44 → SUATTDRO 20:34 → N.4E 21:42 → SUATTDRO 01-06 10:01
PROVIDERS: ADMIT Internal Medicine; ATTEND Internal Medicine Cardiovascular Disease

== ENCOUNTER 2019-01-28 21:47 | Inpatient (IN) ==
[2019-01-29] MEDS ORDERED: PROMETHAZINE 25 MG/1 ML VIAL IM PRN (00:20)
[2019-01-29] MEDS ORDERED: DEXTROSE 50% 25 GM/50 ML VIAL IV PRN (00:54)
[2019-01-29] MEDS ORDERED: GLUCAGON 1 MG VIAL IM PRN (00:54)
[2019-01-29] MEDS: DEXTROSE 5% NACL 0.45% 1,000 ML IV SCH ×2 (02:01→19:37)
[2019-01-29] MEDS: PIPERACILLIN/TAZOBACTAM 3,375 MG in SODIUM CHLORIDE 0.9% 100 ML IV SCH ×3 (02:02→19:35)
[2019-01-29] MEDS: ONDANSETRON 4 MG/2 ML VIAL IV PRN ×4 (02:11→19:29)
[2019-01-29] MEDS: HYDROmorphone 2 MG/1 ML VIAL IV PRN ×4 (02:12→19:29)
[2019-01-29] MEDS ORDERED: hydrALAZINE 20 MG/1 ML VIAL IV PRN (05:09)
[2019-01-29 05:14] LABS: Basophils % 0.2 % (0.0-0.8); Eosinophils # 0.1 10*3/uL (0.0-0.87); Eosinophils % 0.5 % (0.00-10.9); Hematocrit 26.4 VOL% (35.7-47.0); Hemoglobin 7.9 GM/DL (12.0-16.0); Immature Granulocytes % 0.6 %; Immature Granulocytes Absolute 0.09 #; Lymphocytes # 2.1 10*3/uL (1.4-4.0); Mean Corpuscular HGB Conc 29.9 GM/DL (32-36); Mean Corpuscular Volume 84.3 FL (87-102); Mean Platelet Volume 8.7 FL (9.6-12.0); Neutrophils % 76.7 % (38.7-73.9); Platelet Count 652 T/CUMM (130-400); Red Blood Count 3.13 MC/CUMM (3.8-5.5); Red Cell Distribution Width 19.6 % (9.3-17.3); White Blood Count 14.8 T/CUMM (4-12)
[2019-01-29 05:46] LABS: Albumin 2.3 G/DL (3.4-5.0); Bilirubin,Total 0.4 MG/DL (0.2-1.0); Calcium 8.4 MG/DL (8.5-10.1); Osmolality,Calculated 283.1 MOS/KG (273-304); Total Protein 6.1 G/DL (6.4-8.3)
[2019-01-29] MEDS: INSULIN REGULAR 100 UNIT/ML SUBCUT SCH ×3 (05:53→19:38)
[2019-01-29] MEDS: ENOXAPARIN 40 MG/0.4 ML SYRINGE SUBCUT SCH (09:01)
[2019-01-30] MEDS: PIPERACILLIN/TAZOBACTAM 3,375 MG in SODIUM CHLORIDE 0.9% 100 ML IV SCH ×3 (00:35→18:53)
[2019-01-30] MEDS: ONDANSETRON 4 MG/2 ML VIAL IV PRN ×6 (00:36→23:18)
[2019-01-30] MEDS: HYDROmorphone 2 MG/1 ML VIAL IV PRN ×6 (00:36→23:23)
[2019-01-30] MEDS: INSULIN REGULAR 100 UNIT/ML SUBCUT SCH ×4 (03:39→18:54)
[2019-01-30 06:01] LABS: Basophils % 0.2 % (0.0-0.8); Eosinophils # 0.1 10*3/uL (0.0-0.87); Eosinophils % 1.1 % (0.00-10.9); Hematocrit 26.7 VOL% (35.7-47.0); Hemoglobin 7.6 GM/DL (12.0-16.0); Immature Granulocytes % 0.5 %; Immature Granulocytes Absolute 0.06 #; Lymphocytes # 1.2 10*3/uL (1.4-4.0); Lymphocytes % 9.8 % (21.3-54.2); Mean Corpuscular HGB Conc 28.5 GM/DL (32-36); Mean Corpuscular Volume 85.9 FL (87-102); Mean Platelet Volume 8.6 FL (9.6-12.0); Monocytes % 8.7 % (1.7-12.7); Neutrophils % 79.7 % (38.7-73.9); Platelet Count 603 T/CUMM (130-400); Red Blood Count 3.11 MC/CUMM (3.8-5.5); Red Cell Distribution Width 19.6 % (9.3-17.3); White Blood Count 12.1 T/CUMM (4-12)
[2019-01-30 06:32] LABS: Albumin 2.2 G/DL (3.4-5.0); Bilirubin,Total 0.4 MG/DL (0.2-1.0); Calcium 8.3 MG/DL (8.5-10.1); Osmolality,Calculated 293.4 MOS/KG (273-304); Total Protein 6.3 G/DL (6.4-8.3)
[2019-01-30 06:33] LABS: Platelet Estimate Increased
[2019-01-30] MEDS: DEXTROSE 5% NACL 0.45% 1,000 ML IV SCH ×2 (06:33→18:54)
[2019-01-30] MEDS: ENOXAPARIN 40 MG/0.4 ML SYRINGE SUBCUT SCH (13:49)
[2019-01-31] MEDS: INSULIN REGULAR 100 UNIT/ML SUBCUT SCH ×4 (00:54→19:16)
[2019-01-31] MEDS: PIPERACILLIN/TAZOBACTAM 3,375 MG in SODIUM CHLORIDE 0.9% 100 ML IV SCH ×2 (00:56→09:17)
[2019-01-31] MEDS: ONDANSETRON 4 MG/2 ML VIAL IV PRN ×3 (03:39→12:37)
[2019-01-31] MEDS: HYDROmorphone 2 MG/1 ML VIAL IV PRN ×3 (03:42→12:33)
[2019-01-31 05:36] LABS: Basophils % 0.2 % (0.0-0.8); Eosinophils # 0.2 10*3/uL (0.0-0.87); Eosinophils % 1.1 % (0.00-10.9); Hematocrit 28.6 VOL% (35.7-47.0); Hemoglobin 8.3 GM/DL (12.0-16.0); Immature Granulocytes % 1.5 %; Lymphocytes # 1.4 10*3/uL (1.4-4.0); Lymphocytes % 10.6 % (21.3-54.2); Mean Corpuscular Volume 85.6 FL (87-102); Mean Platelet Volume 8.7 FL (9.6-12.0); Monocytes % 8.9 % (1.7-12.7); Neutrophils % 77.7 % (38.7-73.9); Platelet Count 639 T/CUMM (130-400); Red Blood Count 3.34 MC/CUMM (3.8-5.5); Red Cell Distribution Width 19.8 % (9.3-17.3); White Blood Count 13.2 T/CUMM (4-12)
[2019-01-31 06:05] LABS: Calcium 8.4 MG/DL (8.5-10.1); Osmolality,Calculated 281.1 MOS/KG (273-304)
[2019-01-31] MEDS: ENOXAPARIN 40 MG/0.4 ML SYRINGE SUBCUT SCH (09:17)
[2019-01-31] MEDS: DEXTROSE 5% NACL 0.45% 1,000 ML IV SCH (09:24)
[2019-01-31] MEDS: METOCLOPRAMIDE 10 MG TABLET PO SCH ×2 (12:58→17:02)
[2019-01-31] MEDS: oxyCODONE/ACETAMINOPHEN 5-325 MG TABLET PO PRN ×2 (17:04→21:19)
[2019-01-31] MEDS ORDERED: LORATADINE 10 MG TABLET PO SCH (21:00)
[2019-01-31] MEDS ORDERED: SIMVASTATIN 10 MG TABLET PO SCH (21:00)
[2019-01-31] MEDS ORDERED: amLODIPine 5 MG TABLET PO SCH (21:00)
[2019-01-31] MEDS ORDERED: MECLIZINE 25 MG TABLET PO SCH (21:00)
[2019-02-01] MEDS: oxyCODONE/ACETAMINOPHEN 5-325 MG TABLET PO PRN ×3 (01:20→09:21)
[2019-02-01 05:57] LABS: Calcium 8.1 MG/DL (8.5-10.1); Osmolality,Calculated 278.3 MOS/KG (273-304)
[2019-02-01] MEDS: ONDANSETRON 4 MG/2 ML VIAL IV PRN (06:02)
[2019-02-01] MEDS: INSULIN REGULAR 100 UNIT/ML SUBCUT SCH ×3 (06:36→12:54)
[2019-02-01] MEDS ORDERED: POTASSIUM CHLORIDE 20 MEQ TABLET PO ONE (08:27)
[2019-02-01] MEDS ORDERED: ASPIRIN EC 81 MG TABLET PO SCH (09:00)
[2019-02-01] MEDS ORDERED: PEDIATRIC MULTIVITAMIN PO SCH (09:00)
[2019-02-01] MEDS: ENOXAPARIN 40 MG/0.4 ML SYRINGE SUBCUT SCH (09:21)
[2019-02-01] MEDS: METOCLOPRAMIDE 10 MG TABLET PO SCH ×2 (09:21→12:54)
[2019-02-01 12:11] VITALS: BP 124/75
== END 2019-02-01 12:41 | disposition home or self-care (01) | DRG 844 ==
LOC: N.ED 21:47 → N.EDINP 01-29 00:12 → N.3E 01-29 00:35
PROVIDERS: ADMIT Internal Medicine; ATTEND Internal Medicine